=== PATIENT | female | born 1945 | race Asian ===

== ENCOUNTER 2017-03-02 20:20 | Emergency (ER) | payer MEDICAID, MEDICARE ==
--- NOTE | 2017-03-02 21:16 | ED Physician Chart ---
ED Chief Complaint/HPI - Patient Information Date Seen:: 03/02/17 Time Seen:: 21:00 Chief Complaint:: hypertension History of Present Illness:: Patient went to Dr. Garcia's office today for diffuse myalgia. She was told her blood pressure was high and she was told to go to the emergency department. No chest pain and no shortness of breath. Patient is now having some crampy abdominal pain. Allergies:: Allergies Allergy/AdvReac Type Severity Reaction Status Date / Time tramadol Allergy Verified 03/02/17 20:44 Vitals:: Vital Signs - 8 hr 03/02/17 20:25 Temp 97.9 F HR 62 RR 18 BP 230/89 O2 Sat % 99 Historian:: Patient Review:: Nurse's Note Reviewed ED Review of Systems - Review of Systems General/Constitutional: No fever, No chills Skin: No skin lesions Head: No headache Eyes: No loss of vision ENT: No earache Neck: No neck pain Cardio Vascular: No chest pain, No palpitations Pulmonary: No SOB GI: No nausea, No vomiting, No diarrhea, Pain G/U: No dysuria, No frequency, No hematuria Musculoskeletal: No bone or joint pain, No muscle pain Endocrine: No polyuria, No polydipsia Psychiatric: No prior psych history Hematopoietic: No bruising, No lymphadenopathy Allergic/Immuno: No urticaria Neurological: No syncope, No focal symptoms ED Past Medical History - Past Medical History Past Medical History: HTN, Other (prediabetes) Family History: HTN, Other (CVA) Social History: Non Smoker, No Alcohol Surgical History: Psychiatricy History: None Medication: Reviewed Family Medical History - Family Member Mother History Unknown: Yes Ethnicity: Non- ED Physical Exam - Physical Examination General/Constitutional: Well-developed, well-nourished, Alert, No distress Head: Atraumatic Eyes: Lids, conjuctiva normal, PERRL Skin: Nl inspection, No rash, No skin lesions, No ecchymosis ENMT: External ears, nose nl Other ENMT comments:: Full dentures Neck: No nuchal rigidity Respiratory: Nl effort/Exclusion, Clear to Auscultation, No Wheeze/Rhonchi/Rales Cardio Vascular: RRR, No murmur, gallop, rubs, NL S1 S2 GI: No tenderness/rebounding/guarding, No organomegaly, No hernia, Normal BS's, Nondistended, No mass/bruits, No McBurney tenderness Extremities: Normal digits & nails Neuro/Psych: No focal deficits Misc: Normal back ED Labs/Radiology/EKG Results - Lab Results Results: Laboratory Results - last 24 hr 03/02/17 03/02/17 03/02/17 20:19 21:12 21:12 WBC 7.7 RBC 4.56 Hgb 12.2 Hct 36.4 L MCV 79.7 L MCH 26.7 L MCHC Differential 33.5 RDW 13.2 Plt Count 269 MPV 8.2 Neutrophils (Manual) 53 Lymphocytes 39 Monocytes 4 Eosinophils 4 Platelet Estimate ADEQUATE Microcytosis 1+ RBC Morph Micro Appear ABNORMAL Sodium 139 Potassium 3.6 Chloride 108 H Carbon Dioxide 23.7 Anion Gap 10.9 BUN 20 Creatinine 0.9 Est GFR ( Amer) TNP Est GFR (Non-Af Amer) TNP BUN/Creatinine Ratio 22.2 Glucose 107 H Calcium 9.4 Magnesium 2.0 Lipase 53 - EKG Interpretations Rate & Rhythm: bigeminy with a rate of 78 [place]: normal Intervals: normal Comments:: right ventricular prominence ED Assessment - Assessment General Assessment: A few minutes after the EKG was done which showed ventricular bigeminy a rhythm strip showed a sinus bradycardia with a PAC. ED Septic Shock - . Is Septic Shock (SBP<90, OR Lactate>4 mmol\L) present?: No - <6hrs of presentation: Vital Signs: Vital Signs - 8 hr 03/02/17 20:25 Temp 97.9 F HR 62 RR 18 BP 230/89 O2 Sat % 99 ED Reassessment (Disposition) - Reassessment Reassessment:: Patient's high blood pressures essentially asymptomatic which does not require admission to the hospital. Patient's hypertension can be managed as an outpatient. Reassessment Condition:: Improved - Aftercare/Follow up Instructions Aftercare/Follow-Up Instructions:: Refer to Discharge Instructions - Patient Disposition Discharge/Transfer:: Home Condition at Disposition:: Stable, Improved
[2017-03-02 21:24] LABS: HEMATOCRIT 36.4 % (41.0-60); HEMOGLOBIN 12.2 gm/dL (12-16); MEAN CELL VOLUME 79.7 fl (81-100); MEAN CORPUSCULAR HEMOGLOBIN 26.7 pg (27.0-31.0); MEAN CORPUSCULAR HGB CONC 33.5 pg (28.0-36.0); MEAN PLATELET VOLUME 8.2 fl; PLATELET COUNT 269 Th/cmm (150-400); RED BLOOD COUNT 4.56 Mil/cmm (3.80-5.20); RED CELL DISTRIBUTION WIDTH 13.2 % (11.5-20.0); WHITE BLOOD COUNT 7.7 Th/cmm (4.8-10.8)
[2017-03-02 21:39] LABS: ANION GAP 10.9 (7.0-16.0); BUN - UREA NITROGEN 20 mg/dL (7-25); BUN/CREATININE RATIO 22.2; CALCIUM SERUM 9.4 mg/dL (8.6-10.3); CARBON DIOXIDE 23.7 mEq/L (21.0-31.0); CHLORIDE 108 mEq/L (98-107); CREATININE - SERUM 0.9 mg/dL (0.6-1.2); GLUCOSE 107 mg/dL (70-105); POTASSIUM SERUM 3.6 mEq/L (3.5-5.1); SODIUM SERUM 139 mEq/L (136-145)
[2017-03-02 21:47] LABS: EOSINOPHIL 4 % (0-5); MICROCYTOSIS 1+; NEUTROPHILS 53 % (40-80); PLATELET ESTIMATE ADEQUATE (NORMAL); TOTAL CELLS COUNTED 100
== END 2017-03-02 22:58 | disposition home or self-care (01) ==
LOC: ER 20:20
DX: I10 Essential (primary) hypertension (principal); R10.9 Unspecified abdominal pain
CPT/HCPCS: 36415-UA; 80048-TC; 83690-TC; 83735-TC; 85007-TC; 85027-TC; 93005; Z7610